=== PATIENT | female | born 1970 | race Caucasian/White ===

== ENCOUNTER → 2018-04-21 | Emergency (ER) | payer OTHER ==
[~2018-04-21] MED LIST: ONDANSETRON 4 MG/2 ML VIAL IVPB ONE; ONDANSETRON 4 MG/2 ML VIAL ONE; PIPERACILLIN/TAZOB 4.5 GM 4.5 GM in DEXTROSE 5%-WATER 100 ML IVPB ONE; PIPERACILLIN/TAZOBACTAM 4.5 GM VIAL IVPB ONE; SODIUM CHLORIDE 1,000 ML IV ONE; SODIUM CHLORIDE 1,000 ML IV STA; morphine CARPU-JECT 4 MG/1 ML DISP.SYRIN IVPUSH ONE; morphine SULFATE 4 MG/ML VIAL ONE
[2018-04-21 15:24] VITALS: BMI 42.3
--- NOTE | 2018-04-21 15:29 | PDOC ---
Attending Attestation - Resident Resident Name: Mayda Gamboa - ED Attending Attestation I have performed the following: I have examined & evaluated the patient, The case was reviewed & discussed with the resident, I agree w/resident's findings & plan, Exceptions are as noted
--- NOTE | 2018-04-21 16:03 | PDOC ---
History of Present Illness <JitendraLalitha - Last Filed: 04/21/18 22:37> <TusharKarynkristinelaura Isaias - Last Filed: 04/21/18 23:45> - History of Present Illness Initial Comments: 04/21/18 15:53 Chief complaint: Abdominal pain and vomiting History of present illness: One-week history of abdominal pain with vomiting of most by mouth food and fluids. Just returned from a trip to [place], during which she was acutely ill with the above symptoms. Today presented to her primary physician Dr. Waller who felt she had peritoneal signs and referred her for ER evaluation Review of systems: No fever/chills, URI symptoms, sore throat, cough, chest pain , shortness of breath, visual or focal neurologic symptoms, unsteadiness of gait. No vaginal bleeding or discharge except for normal masses, menstruating now. Upon further review there was one episode of bright red blood per rectum last week, persistent nausea with vomiting, intermittent constipation but no diarrhea, and urinary frequency. Past medical history: Multiple surgical procedures on the abdomen including gastric bypass, ventral hernia, appendectomy, cholecystectomy, and section. Outside of obesity, there is no known medical illness or other GI disease. Social history: Active, employed as sql server consultant, travels frequently, social alcohol, none recently, no tobacco or drugs, stable home and family Family history: Reviewed and noncontributory including early coronary artery disease, metabolic diseases including diabetes, or cancer Physical exam: Alert and oriented moderately obese mild distress due to abdominal pain, mostly when moving, fairly comfortable when reclining. Cooperative Afebrile, vital signs normal No pallor or icterus. PERRLA, ENT clear Neck supple without bruit mass or nodes Lungs clear, full breath sounds bilaterally, no wheezes rales or rhonchi CV regular without murmur rub or gallop pulses full and symmetric no JVD or edema no bruits Abdomen bowel sounds heard. Normal in character. Mild to moderately distended, especially in the epigastrium. Old scars are present. There is diffuse tenderness to palpation, with a suggestion of guarding and rebound in the left lower quadrant. No CVAT. Neurological intact Extremities no CCE Skin clear, no rash, adequate turgor and wet mucous membranes Impression: Acute diverticulitis, possible perforation or abscess, possible obstruction due to adhesions from multiple previous surgeries Plan: CBC, chemistries, blood cultures, CT and further evaluation depending on results. <Sean Jansen - Last Filed: 04/26/18 07:51> - General Chief Complaint: Pain Stated Complaint: ABD PAIN Time Seen by Provider: 04/21/18 15:42 Past History <Lalitha Ham - Last Filed: 04/21/18 22:37> <Juan Manuel Finley I - Last Filed: 04/21/18 23:45> - Past Medical History COPD: No - Surgical History Abdominal Surgery: Yes ([facility] BYPASS) - Suicide/Smoking/Psychosocial Hx Smoking History: Never smoked Have you smoked in the past 12 months: No Information on smoking cessation initiated: No Hx Alcohol Use: No <Sean Jansen - Last Filed: 04/26/18 07:51> - Past Medical History Allergies/Adverse Reactions: Allergies Allergy/AdvReac Type Severity Reaction Status Date / Time No Known Allergies Allergy Verified 04/21/18 15:17 Home Medications: Ambulatory Orders Cholecalciferol (Vitamin D3) [Vitamin D3 -] 5,000 unit PO DAILY 04/21/18 Ferrous Sulfate [Feosol] 325 mg PO BID 04/21/18 Hydrocodone/Acetaminophen [Vicodin Es 7.5-300 mg Tablet] 1 each PO ASDIR *Physical Exam - Vital Signs Last Vital Signs Temp Pulse Resp BP Pulse Ox 97.3 F L 20 L 121 H 130/81 96 04/21/18 15:15 04/21/18 15:15 04/21/18 15:15 04/21/18 15:15 04/21/18 15:15 <Lalitha Ham - Last Filed: 04/21/18 22:37> - Vital Signs Last Vital Signs Temp Pulse Resp BP Pulse Ox 98.6 F 118 H 20 115/77 96 04/21/18 21:51 04/21/18 21:51 04/21/18 21:51 04/21/18 21:51 04/21/18 21:48 <Juan Manuel Finley I - Last Filed: 04/21/18 23:45> - Vital Signs Last Vital Signs Temp Pulse Resp BP Pulse Ox 97.3 F L 20 L 121 H 130/81 96 04/21/18 15:15 04/21/18 15:15 04/21/18 15:15 04/21/18 15:15 04/21/18 15:15 <Sean Jansen - Last Filed: 04/26/18 07:51> ED Treatment Course - LABORATORY CBC & Chemistry Diagram: 04/21/18 15:30 04/21/18 15:30 - ADDITIONAL ORDERS Additional order review: Laboratory Results 04/21/18 04/21/18 04/21/18 16:00 16:00 15:30 PT with INR INR Sodium Potassium Chloride Carbon Dioxide Anion Gap BUN Creatinine Creat Clearance w eGFR Random Glucose Lactic Acid 1.7 Calcium Total Bilirubin AST ALT Alkaline Phosphatase Total Protein Albumin Lipase Urine Color Yellow Urine Appearance Clear Urine pH 5.5 Ur Specific [place] 1.025 Urine Protein 2+ H Urine Glucose (UA) Trace Urine Ketones 1+ H Urine Blood 3+ H Urine Nitrite Negative Urine Bilirubin 3+ H Urine Urobilinogen 2.0 H Ur Leukocyte Esterase Negative Urine RBC 20-40 Urine WBC 2-5 Ur Epithelial Cells 2+ Amorphous Urates 1+ Urine Bacteria 1+ Urine HCG, Qual Cancelled 04/21/18 04/21/18 15:30 15:30 PT with INR 22.2 H INR 2.01 H Sodium 133 L Potassium 3.9 Chloride 95 L Carbon Dioxide 25 Anion Gap 13 BUN 30 H Creatinine 0.8 Creat Clearance w eGFR > 60 Random Glucose 105 Lactic Acid Calcium 9.4 Total Bilirubin 9.5 H AST 80 H ALT 129 H Alkaline Phosphatase 518 H Total Protein 6.3 L Albumin 2.5 L Lipase 256 Urine Color Urine Appearance Urine pH Ur Specific [place] Urine Protein Urine Glucose (UA) Urine Ketones Urine Blood Urine Nitrite Urine Bilirubin Urine Urobilinogen Ur Leukocyte Esterase Urine RBC Urine WBC Ur Epithelial Cells Amorphous Urates Urine Bacteria Urine HCG, Qual 04/21/18 15:30 RBC 4.71 MCV 91.7 MCHC 33.6 RDW 13.4 MPV 8.9 Neutrophils % 90.7 H Lymphocytes % 4.5 L Monocytes % 4.6 Eosinophils % 0.1 Basophils % 0.1 - Medications Given in the ED: ED Medications Discontinued Medications Generic Name Dose Route Start Last Admin Trade Name Freq PRN Reason Stop Dose Admin Sodium Chloride 1,000 mls @ 1,000 mls/hr 04/21/18 15:41 04/21/18 16:09 Normal Saline - IV 04/21/18 16:40 1,000 mls/hr ASDIR STA Administration Ondansetron HCl 4 mg 04/21/18 15:41 04/21/18 16:09 Zofran Injection IVPB 04/21/18 15:42 4 mg ONCE ONE Administration <Lalitha Ham - Last Filed: 04/21/18 22:37> - LABORATORY CBC & Chemistry Diagram: 04/21/18 15:30 04/21/18 15:30 - ADDITIONAL ORDERS Additional order review: Laboratory Results 04/21/18 04/21/18 04/21/18 16:00 16:00 15:30 PT with INR INR Sodium Potassium Chloride Carbon Dioxide Anion Gap BUN Creatinine Creat Clearance w eGFR Random Glucose Lactic Acid 1.7 Calcium Total Bilirubin AST ALT Alkaline Phosphatase Total Protein Albumin Lipase Urine Color Yellow Urine Appearance Clear Urine pH 5.5 Ur Specific [place] 1.025 Urine Protein 2+ H Urine Glucose (UA) Trace Urine Ketones 1+ H Urine Blood 3+ H Urine Nitrite Negative Urine Bilirubin 3+ H Urine Urobilinogen 2.0 H Ur Leukocyte Esterase Negative Urine RBC 20-40 Urine WBC 2-5 Ur Epithelial Cells 2+ Amorphous Urates 1+ Urine Bacteria 1+ Urine HCG, Qual Cancelled 04/21/18 04/21/18 15:30 15:30 PT with INR 22.2 H INR 2.01 H Sodium 133 L Potassium 3.9 Chloride 95 L Carbon Dioxide 25 Anion Gap 13 BUN 30 H Creatinine 0.8 Creat Clearance w eGFR > 60 Random Glucose 105 Lactic Acid Calcium 9.4 Total Bilirubin 9.5 H AST 80 H ALT 129 H Alkaline Phosphatase 518 H Total Protein 6.3 L Albumin 2.5 L Lipase 256 Urine Color Urine Appearance Urine pH Ur Specific [place] Urine Protein Urine Glucose (UA) Urine Ketones Urine Blood Urine Nitrite Urine Bilirubin Urine Urobilinogen Ur Leukocyte Esterase Urine RBC Urine WBC Ur Epithelial Cells Amorphous Urates Urine Bacteria Urine HCG, Qual 04/21/18 15:30 RBC 4.71 MCV 91.7 MCHC 33.6 RDW 13.4 MPV 8.9 Neutrophils % 90.7 H Lymphocytes % 4.5 L Monocytes % 4.6 Eosinophils % 0.1 Basophils % 0.1 - RADIOLOGY Radiology Studies Ordered: Category Date Time Status CHEST X-RAY PORTABLE* [RAD] Stat Radiology 04/21/18 20:14 Taken - Medications Given in the ED: ED Medications Discontinued Medications Generic Name Dose Route Start Last Admin Trade Name Beth PRN Reason Stop Dose Admin Sodium Chloride 1,000 mls @ 1,000 mls/hr 04/21/18 15:41 04/21/18 16:09 Normal Saline - IV 04/21/18 16:40 1,000 mls/hr ASDIR STA Administration Piperacillin Sod/Tazobactam 100 mls @ 200 mls/hr 04/21/18 20:07 04/21/18 20: 28 Sod 4.5 gm/ Dextrose IVPB 04/21/18 20:36 200 mls/hr ONCE ONE Administration Protocol Sodium Chloride 1,000 mls @ 1,000 mls/hr 04/21/18 20:35 04/21/18 21:00 Normal Saline - IV 04/21/18 21:34 1,000 mls/hr .Q1H ONE Administration Morphine Sulfate 4 mg 04/21/18 20:07 04/21/18 20:28 Morphine Injection - IVPUSH 04/21/18 20:08 4 mg ONCE ONE Administration Morphine Sulfate 4 mg 04/21/18 21:34 04/21/18 21:40 Morphine Injection - IVPUSH 04/21/18 21:35 4 mg ONCE ONE Administration Ondansetron HCl 4 mg 04/21/18 15:41 04/21/18 16:09 Zofran Injection IVPB 04/21/18 15:42 4 mg ONCE ONE Administration <Juan Manuel Finley I - Last Filed: 04/21/18 23:45> - LABORATORY CBC & Chemistry Diagram: 04/21/18 15:30 04/21/18 15:30 <Sean Jansen - Last Filed: 04/26/18 07:51> Medical Decision Making - Medical Decision Making Patient reports she had abdominal surgery done at [facility] in 2000, by Dr. Umanzor. 04/21/18 20:03 Call placed to [facility], information exchanged with Oriana. Case discussed with Dr. Cordova 04/21/18 20:[address] Delgado, spoke with the service, waiting for a call back. 04/21/18 20:[address] Delgado. 04/21/18 20:22 EXAM: CT abdomen pelvis with contrast REPORT Axial CT of the abdomen and pelvis with IV contrast. Liver, spleen, pancreas, kidneys, bowel, appendix, aorta, pelvic structures: No acute abnormality seen, unless noted below. IMPRESSION Basal atelectasis versus infiltrates. Postsurgical changes are present. Multiple dilated small bowel loops are seen, fluid-filled with air-fluid levels. Compatible with small bowel obstruction. Consider closed loop obstruction. There is free air at the left upper quadrant. Free fluid is present. No definite free contrast. Compatible with bowel perforation, or recent surgery. This CT scan was performed with one or more of the following dose optimization techniques: iterative reconstruction, automatic exposure control, and/or manual adjustment of mAs and kVp according to the patient's size. THIS DOCUMENT HAS BEEN ELECTRONICALLY SIGNED Jan Santoyo MD 04/21/2018 19:08 EST 04/21/18 20:23 Call placed to [facility], Spoke with Courtney, trying to connect with Dr. Cordova. 04/21/18 20:[address] Cordova. 04/21/18 20:26 Dr. Cordova rejected the transfer, suggested that we try [facility]. 04/21/18 20:29 Call placed to [facility] transfer center 04/21/18 20:32 04/21/18 21:[address] Zack Umanzor Patient accepted to the ER. 04/21/18 21:[address] Rodriguez at [facility], who took reports on the patient. 04/21/18 21:35 [facility] called for transportation. 04/21/18 22:37 Patient had left our ER to [facility] via [facility]. <Lalitha Ham - Last Filed: 04/21/18 22:37> - Medical Decision Making 04/21/18 19:07 Minimally elevated white count. Elevated liver enzymes, alkaline phosphatase, and bilirubin, and an obstructive pattern Suggestive of stone in the common bile duct with obstruction CT pending. CT Jesus Sethi has become inoperable. Transport arranged to [facility] for CT. Further evaluation pending CT results. 04/21/18 19:35 Spoke to radiologist from imaging vascular sonographer. Scan shows free air and free fluid suggestive of a perforation. There does not appear to be free contrast material , however. The exact location is uncertain, but presumably from one of the anastomoses at the site of the gastric bypass. ICU resident was consulted by phone. Since hemodynamic status is stable, suggested admission to noncardiac telemetry. Hospitalist is being contacted. Antibiotics were administered. , who was on-call for surgery, was consulted. Because there could be a perforation in the prior gastric bypass, she feels that this would require the expertise of a bariatric surgeon. Attempts to contact Dr. Danny rahman. Waiting for call back. Signed out to Dr. Sánchez 7 PM pending further consultation. Antibiotics and analgesics were administered and the patient is comfortable, hemodynamically stable, and awaiting disposition <Sean Jansen - Last Filed: 04/26/18 07:51> *DC/Admit/Observation/Transfer <Lalitha Ham - Last Filed: 04/21/18 22:37> <Juan Manuel Finley I - Last Filed: 04/21/18 23:45> <Sean Jansen - Last Filed: 04/26/18 07:51> Diagnosis at time of Disposition: Perforated abdominal viscus, Small bowel obstruction - Discharge Dispostion Disposition: TRANSFER ACUTE CARE/OTHER HOSP Condition at time of disposition: Stable - Referrals Referrals: Darrick Waller MD [Primary Care Provider] - - Patient Instructions - Post Discharge Activity
[2018-04-21 16:04] LABS: BASO % 0.1 % (0-2.0); EOS % 0.1 % (0-4.5); HEMATOCRIT 43.2 % (32.4-45.2); HEMOGLOBIN 14.5 GM/dl (10.7-15.3); LYMPH % 4.5 % (8-40); MCH 30.8 pg (25.7-33.7); MCHC 33.6 g/dl (32.0-36.0); MEAN CELL VOLUME 91.7 fl (80-96); MEAN PLT VOLUME 8.9 fl (7.5-11.1); MONO % 4.6 % (3.8-10.2); NEUT % 90.7 % (42.8-82.8); PLATELET COUNT 462 K/MM3 (134-434); RBC 4.71 M/mm3 (3.60-5.2); RDW 13.4 % (11.6-15.6); WHITE BLOOD COUNT 12.6 K/mm3 (4.0-10.8)
[2018-04-21 16:13] LABS: ALBUMIN 2.5 g/dl (3.5-5.0); ALK PHOS 518 U/L (32-92); ANION GAP 13 MMOL/L (8-16); BILIRUBIN,TOTAL 9.5 mg/dl (0.2-1.0); BLOOD UREA NITROGEN 30 mg/dl (7-18); CALCIUM 9.4 mg/dl (8.4-10.2); CHLORIDE 95 mmol/L (98-107); CO2 25 mmol/L (22-28); CREATININE 0.8 mg/dl (0.6-1.3); GLUCOSE,RANDOM 105 mg/dl (74-106); POTASSIUM 3.9 mmol/L (3.5-5.1); SGOT/AST 80 U/L (10-42); SGPT/ALT 129 U/L (10-40); SODIUM 133 mmol/L (136-145); TOT PROT 6.3 g/dl (6.4-8.3)
[2018-04-21 16:34] LABS: PH,URINE 5.5 (4.5-8); URINE APPEARANCE Clear; URINE BILIRUBIN 3+ (NEGATIVE); URINE COLOR Yellow; URINE GLUCOSE (UA) Trace (NEGATIVE); URINE KETONE 1+ (NEGATIVE); URINE LEUK ESTERASE Negative (NEGATIVE); URINE NITRITE Negative (NEGATIVE); URINE PROTEIN 2+ (NEGATIVE)
[2018-04-21 16:53] LABS: AMORP URATES 1+ /hpf (NONE SEEN); EPI CELLS 2+ /HPF; URINE BACTERIA 1+ /hpf (NEGATIVE); URINE RBC 20-40 /hpf (0-3)
[2018-04-21 17:44] LABS: INR 2.01 (0.82-1.09); PROTHROMBIN TIME (PATIENT) 22.2 SEC (10.2-13.0)
[2018-04-21 18:22] LABS: LIPASE 256 U/L (73-393)
[2018-04-21 21:12] VITALS: TEMP 98.6
[2018-04-21 21:49] VITALS: BP 115/77; PULSE 118
--- NOTE | 2018-04-21 23:08 | PDOC ---
*Physical Exam - Vital Signs Last Vital Signs Temp Pulse Resp BP Pulse Ox 98.6 F 118 H 20 115/77 96 04/21/18 21:51 04/21/18 21:51 04/21/18 21:51 04/21/18 21:51 04/21/18 21:48 ED Treatment Course - LABORATORY CBC & Chemistry Diagram: 04/21/18 15:30 04/21/18 15:30 - ADDITIONAL ORDERS Additional order review: Laboratory Results 04/21/18 04/21/18 04/21/18 16:00 16:00 15:30 PT with INR INR Sodium Potassium Chloride Carbon Dioxide Anion Gap BUN Creatinine Creat Clearance w eGFR Random Glucose Lactic Acid 1.7 Calcium Total Bilirubin AST ALT Alkaline Phosphatase Total Protein Albumin Lipase Urine Color Yellow Urine Appearance Clear Urine pH 5.5 Ur Specific [place] 1.025 Urine Protein 2+ H Urine Glucose (UA) Trace Urine Ketones 1+ H Urine Blood 3+ H Urine Nitrite Negative Urine Bilirubin 3+ H Urine Urobilinogen 2.0 H Ur Leukocyte Esterase Negative Urine RBC 20-40 Urine WBC 2-5 Ur Epithelial Cells 2+ Amorphous Urates 1+ Urine Bacteria 1+ Urine HCG, Qual Cancelled 04/21/18 04/21/18 15:30 15:30 PT with INR 22.2 H INR 2.01 H Sodium 133 L Potassium 3.9 Chloride 95 L Carbon Dioxide 25 Anion Gap 13 BUN 30 H Creatinine 0.8 Creat Clearance w eGFR > 60 Random Glucose 105 Lactic Acid Calcium 9.4 Total Bilirubin 9.5 H AST 80 H ALT 129 H Alkaline Phosphatase 518 H Total Protein 6.3 L Albumin 2.5 L Lipase 256 Urine Color Urine Appearance Urine pH Ur Specific [place] Urine Protein Urine Glucose (UA) Urine Ketones Urine Blood Urine Nitrite Urine Bilirubin Urine Urobilinogen Ur Leukocyte Esterase Urine RBC Urine WBC Ur Epithelial Cells Amorphous Urates Urine Bacteria Urine HCG, Qual 04/21/18 15:30 RBC 4.71 MCV 91.7 MCHC 33.6 RDW 13.4 MPV 8.9 Neutrophils % 90.7 H Lymphocytes % 4.5 L Monocytes % 4.6 Eosinophils % 0.1 Basophils % 0.1 - RADIOLOGY Radiology Studies Ordered: Category Date Time Status CHEST X-RAY PORTABLE* [RAD] Stat Radiology 04/21/18 20:14 Taken - Medications Given in the ED: ED Medications Discontinued Medications Generic Name Dose Route Start Last Admin Trade Name Freq PRN Reason Stop Dose Admin Sodium Chloride 1,000 mls @ 1,000 mls/hr 04/21/18 15:41 04/21/18 16:09 Normal Saline - IV 04/21/18 16:40 1,000 mls/hr ASDIR STA Administration Piperacillin Sod/Tazobactam 100 mls @ 200 mls/hr 04/21/18 20:07 04/21/18 20: 28 Sod 4.5 gm/ Dextrose IVPB 04/21/18 20:36 200 mls/hr ONCE ONE Administration Protocol Sodium Chloride 1,000 mls @ 1,000 mls/hr 04/21/18 20:35 04/21/18 21:00 Normal Saline - IV 04/21/18 21:34 1,000 mls/hr .Q1H ONE Administration Morphine Sulfate 4 mg 04/21/18 20:07 04/21/18 20:28 Morphine Injection - IVPUSH 04/21/18 20:08 4 mg ONCE ONE Administration Morphine Sulfate 4 mg 04/21/18 21:34 04/21/18 21:40 Morphine Injection - IVPUSH 04/21/18 21:35 4 mg ONCE ONE Administration Ondansetron HCl 4 mg 04/21/18 15:41 04/21/18 16:09 Zofran Injection IVPB 04/21/18 15:42 4 mg ONCE ONE Administration Progress Note - Progress Note Progress Note: Care of this patient was transferred to mi from Dr. Falcon at 7 PM. Patient has had a complete workup and a diagnosis of perforated viscus with closed loop small bowel obstruction. Plan was initially to admit patient to this facility however in discussions with GI doctor to so and can't it felt that this was a palpitation of her original gastric bypass surgery. [facility] was contacted where her original surgery done is I spoke with the surgeon that did the original surgery as well as a revision secondary to complications and obstruction. Patient was transferred to [place] emergency Department for further evaluation and management by her surgeon Dr. Umanzor. *DC/Admit/Observation/Transfer Diagnosis at time of Disposition: Perforated abdominal viscus, Small bowel obstruction - Discharge Dispostion Disposition: TRANSFER ACUTE CARE/OTHER HOSP Condition at time of disposition: Stable - Referrals Referrals: Darrick Waller MD [Primary Care Provider] - - Patient Instructions - Post Discharge Activity
--- NOTE | 2018-04-22 10:41 | EKG ---
Test Reason : Blood Pressure : / mmHG Vent. Rate : 124 BPM Atrial Rate : 124 BPM P-R Int : 124 ms QRS Dur : 082 ms QT Int : 306 ms P-R-T Axes : 044 -09 026 degrees QTc Int : 439 ms SINUS TACHYCARDIA INFERIOR INFARCT , AGE UNDETERMINED ABNORMAL ECG NO PREVIOUS ECGS AVAILABLE Confirmed by JAMES MINOR, FLORIDALMA ([id number]) on 04/22/2018 10:41:17 AM Referred By: HAI SOUSA Confirmed By:FLORIDALMA RAMIREZ MD
== END | disposition short-term general hospital (02) ==
LOC: FER 15:15
PROC: 3E033NZ Introduction of Analgesics, Hypnotics, Sedatives into Peripheral Vein, Percutaneous Approach (ICD-10-PCS; principal; 2018-04-21)
PROC: 3E033GC Introduction of Other Therapeutic Substance into Peripheral Vein, Percutaneous Approach (ICD-10-PCS; 2018-04-21)
PROC: 3E03329 Introduction of Other Anti-infective into Peripheral Vein, Percutaneous Approach (ICD-10-PCS; 2018-04-21)
PROC: 3E0337Z Introduction of Electrolytic and Water Balance Substance into Peripheral Vein, Percutaneous Approach (ICD-10-PCS; 2018-04-21)
DX: K63.1 Perforation of intestine (nontraumatic) (principal); K56.609 Unspecified intestinal obstruction, unspecified as to partial versus complete obstruction; Z98.84 Bariatric surgery status
CPT/HCPCS: 36415; 71045-TC-FY; 74177-TC; 80053; 81003; 81015; 83605; 83690; 85025; 85610; 87040; 93005; 99285-25; J7030

== ENCOUNTER 2019-07-30 19:56 | Emergency (ER) | payer OTHER ==
[2019-07-30 20:19] VITALS: BP 130/94; PULSE 70; TEMP 98; BMI 25.8
[2019-07-30] MEDS ORDERED: ACETAMINOPHEN WITH CODEINE 300MG/30MG TABLET PO ONE (20:57)
[2019-07-30] MEDS ORDERED: ACETAMINOPHEN WITH CODEINE 300MG/30MG TABLET ONE (21:01)
--- NOTE | 2019-07-30 21:02 | PDOC ---
Documentation entered by Lalitha Ham SCRIBE, acting as scribe for Sean Jansen MD. Sean Jansen MD: This documentation has been prepared by the scribeJitendra Lincy, SCRIBE, under my direction and personally reviewed by me in its entirety. I confirm that the documentation accurately reflects all work, treatment, procedures, and medical decision making performed by me. History of Present Illness - General Chief Complaint: Pain, Acute Stated Complaint: right ankle pain History Source: Patient Exam Limitations: No Limitations - History of Present Illness Initial Comments: 07/30/19 20:26 The patient is a 48-year-old female with a past medical history significant for bowel obstruction who presents to the emergency department with right ankle pain. The patient reports she was leaving someones office very fast, and she spun around very quickly in order to avoid hitting into someone when she twisted her ankle. The patient reports she was wearing heels during the incident. The patient states she and several of her coworkers heard a cracking noise, the patient fell onto the fall. The patient was assisted into her officer , where she put ice on the ankle and elevated the ankle. The patient reports pain to the lateral aspect, denies any numbness or tingling. Review of system: CONSTITUTIONAL: Absent: fever, no chills, no fatigue EYES: Absent: visual changes ENT: Absent: ear pain, no sore throat CARDIOVASCULAR: Absent: chest pain, no palpitations RESPIRATORY: Absent: cough, no SOB GI: Absent: abdominal pain, no nausea, no vomiting, no constipation, no diarrhea GENITOURINARY: Absent: dysuria, no frequency, no hematuria MUSKULOSKELETAL: +right ankle pain. Absent: back pain, no arthralgia, no myalgia SKIN: Absent: rash NEURO: Absent: headache Physical exam: GENERAL: Well developed, well nourished. Awake and alert. No acute distress. EXTREMITY: +tenderness and mild swelling over the anterior lateral ankle ligaments, no deformities or instability, no point tenderness of the malleolio or the 5th digit. Pulses are full, no sensory deficit. Achilles tendon intact and nontender, no posterior samia swelling or tenderness. Past History - Past Medical History Allergies/Adverse Reactions: Allergies Allergy/AdvReac Type Severity Reaction Status Date / Time No Known Allergies Allergy Verified 07/30/19 19:57 Home Medications: Ambulatory Orders Acetaminophen W/ Codeine #3 [Tylenol # 3] 1 - 2 combo PO Q4H PRN #20 tablet MDD 6 07/30/19 Phentermine/Topiramate [Qsymia 11.25 mg-69 mg Capsule] 1 each PO ASDIR 07/30/19 COPD: No - Surgical History Abdominal Surgery: Yes ([facility] BYPASS) Appendectomy: Yes Cholecystectomy: Yes - Psycho Social/Smoking Cessation Hx Smoking History: Never smoked Have you smoked in the past 12 months: No Hx Alcohol Use: No *Physical Exam - Vital Signs Last Vital Signs Temp Pulse Resp BP Pulse Ox 98.0 F 70 18 130/94 100 07/30/19 19:57 07/30/19 19:57 07/30/19 19:57 07/30/19 19:57 07/30/19 19:57 ED Treatment Course - RADIOLOGY Radiology Studies Ordered: Category Date Time Status ANKLE-RIGHT [RAD] Stat Radiology 07/30/19 20:17 Ordered Discharge - Discharge Information Problems reviewed: Yes Clinical Impression/Diagnosis: Ankle sprain Qualifiers: Encounter type: initial encounter Involved ligament of ankle: tibiofibular ligament Laterality: right Qualified Code(s): S93.431A - Sprain of tibiofibular ligament of right ankle, initial encounter Condition: Stable Disposition: HOME - Admission No - Additional Discharge Information Prescriptions: Acetaminophen W/ Codeine #3 [Tylenol # 3] 1 - 2 combo PO Q4H PRN #20 tablet MDD 6 PRN Reason: Pain - Follow up/Referral Referrals: Marquise Melvin MD [Staff Physician] - 1 week - Patient Discharge Instructions Patient Printed Discharge Instructions: How to Use Crutches, DI for Ankle Sprain, How to Apply an Jamil Wrap Additional Instructions: Rest ice and elevate. It is okay to do a limited amount of walking to maintain muscle tone. If pain or swelling persists, see orthopedist for follow-up 1 week. - Post Discharge Activity Work/Back to School Note: Back to Work
== END 2019-07-30 21:08 | disposition home or self-care (01) ==
LOC: SUPCPDRO 19:56 → FER 19:56
DX: S93.431A Sprain of tibiofibular ligament of right ankle, initial encounter (principal); X58.XXXA Exposure to other specified factors, initial encounter; Y93.89 Activity, other specified; Y92.89 Other specified places as the place of occurrence of the external cause; Z98.84 Bariatric surgery status
CPT/HCPCS: 73610-TC-RT-FY; 99282-25

== ENCOUNTER 2023-04-21 08:15 | Emergency (ER) | payer BC, OTHER ==
[2023-04-21 08:21] VITALS: BMI 30.7
[2023-04-21] MEDS ORDERED: ACETAMINOPHEN 1000 MG/100 ML BAG IVPB ONE ×2 (08:59→17:06)
[2023-04-21] MEDS ORDERED: LACTATED RINGERS SOLUTION 1,000 ML/1,000 ML INFUS.BAG IV STA ×2 (08:59→12:05)
[2023-04-21 09:02] LABS: INR 1.22 (0.83-1.09); PROTHROMBIN TIME (PATIENT) 14.1 SEC (9.7-13.0)
[2023-04-21 09:04] LABS: BILIRUBIN,TOTAL 0.9 mg/dl (0.2-1); BLOOD UREA NITROGEN 15.8 mg/dl (7-18); CALCIUM 9.7 mg/dl (8.5-10.1); CREATININE 0.7 mg/dl (0.6-1.3); POTASSIUM 4.3 mmol/L (3.5-5.1); SGOT/AST 23.2 U/L (15-37); SGPT/ALT 19.6 U/L (7-52); TOT PROT 6.1 g/dl (6.4-8.2)
[2023-04-21 09:05] LABS: ACTIVATED PTT 31.6 SECONDS (25.2-36.5)
[2023-04-21 09:07] LABS: HEMATOCRIT 47.3 % (32.4-45.2); HEMOGLOBIN 15.3 G/dL (10.7-15.3); MCH 31.1 pg (25.7-33.7); MCHC 32.4 g/dl (32.0-36.0); MEAN CELL VOLUME 95.8 fl (80-96); MEAN PLT VOLUME 10.7 fl (7.5-11.1); PLATELET COUNT 217.5 10^3/uL (134-434); RBC 4.94 10^6/uL (3.60-5.2); RDW 13.8 % (11.6-15.6); WHITE BLOOD COUNT 4.2 10^3/uL (4.0-10.8)
[2023-04-21] MEDS ORDERED: ACETAMINOPHEN INJECTION 100 ML IVPB ONE (09:07)
[2023-04-21 09:09] LABS: PLATELET ESTIMATE ADEQUATE
[2023-04-21] MEDS ORDERED: ONDANSETRON 4 MG/2 ML VIAL IVPUSH ONE ×2 (09:22→12:38)
[2023-04-21] MEDS ORDERED: ONDANSETRON 4 MG/2 ML VIAL ONE ×2 (09:25→12:38)
[2023-04-21] MEDS ORDERED: morphine CARPU-JECT 8 MG/1 ML DISP.SYRIN IVPUSH ONE ×2 (12:05→16:43)
[2023-04-21 12:14] VITALS: BP 129/85; PULSE 85; RESP 17; TEMP 98.4
[2023-04-21] MEDS ORDERED: morphine SULFATE 4 MG/ML VIAL ONE (12:21)
[2023-04-21] MEDS ORDERED: LACTATED RINGERS SOLUTION 1,000 ML/1,000 ML INFUS.BAG IV SCH (13:45)
[2023-04-21] MEDS ORDERED: ONDANSETRON *ODT* 4 MG TABLET ONE (16:18)
== END 2023-04-21 17:52 | disposition short-term general hospital (02) ==
LOC: FER 08:15
PROC: 3E033NZ Introduction of Analgesics, Hypnotics, Sedatives into Peripheral Vein, Percutaneous Approach (ICD-10-PCS; principal; 2023-04-21)
PROC: 3E033GC Introduction of Other Therapeutic Substance into Peripheral Vein, Percutaneous Approach (ICD-10-PCS; 2023-04-21)
PROC: 3E033GC Introduction of Other Therapeutic Substance into Peripheral Vein, Percutaneous Approach (ICD-10-PCS; 2023-04-21)
PROC: 3E033NZ Introduction of Analgesics, Hypnotics, Sedatives into Peripheral Vein, Percutaneous Approach (ICD-10-PCS; 2023-04-21)
PROC: 3E033GC Introduction of Other Therapeutic Substance into Peripheral Vein, Percutaneous Approach (ICD-10-PCS; 2023-04-21)
PROC: 3E033GC Introduction of Other Therapeutic Substance into Peripheral Vein, Percutaneous Approach (ICD-10-PCS; 2023-04-21)
PROC: 3E0337Z Introduction of Electrolytic and Water Balance Substance into Peripheral Vein, Percutaneous Approach (ICD-10-PCS; 2023-04-21)
PROC: 3E0337Z Introduction of Electrolytic and Water Balance Substance into Peripheral Vein, Percutaneous Approach (ICD-10-PCS; 2023-04-21)
DX: R10.30 Lower abdominal pain, unspecified (principal); R11.10 Vomiting, unspecified; R10.84 Generalized abdominal pain; K56.609 Unspecified intestinal obstruction, unspecified as to partial versus complete obstruction
CPT/HCPCS: 36415; 71045-TC-FY; 74177-TC; 80053; 81003; 83690; 85025; 85610; 85730; 86850; 86900; 86901; 87086; 99285-25; Q9967